=== PATIENT | female | born 1985 | race African-American/Black ===

== ENCOUNTER 2016-11-26 06:25 | Inpatient (IN) | payer OTHER ==
[2016-11-26] MEDS ORDERED: SODIUM PHOSPHATE/NA BIPHOS 133 ML ENEMA PR ONE (08:00)
[2016-11-26 08:53] LABS: BASOPHIL 0.4 % (0-2.0); EOSINOPHIL 0.9 % (0-4.5); MCH 24.9 pg (25.7-33.7); MCHC 32.4 g/dl (32.0-36.0); MEAN CELL VOLUME 76.9 fl (80-96); MEAN PLT VOLUME 9.7 fl (7.5-11.1); NEUTROPHILS 67.1 % (42.8-82.8); PLATELET COUNT 150 K/MM3 (134-434); RDW 22.5 % (11.6-15.6); WHITE BLOOD COUNT 7.4 K/mm3 (4.0-10.0)
[2016-11-26 09:03] LABS: CALCIUM 8.5 mg/dL (8.5-10.1); CREATININE 0.7 mg/dL (0.55-1.02)
[2016-11-26 09:06] LABS: URINE APPEARANCE CLEAR; URINE BILIRUBIN NEGATIVE (NEGATIVE); URINE BLOOD NEGATIVE (NEGATIVE); URINE COLOR STRAW; URINE GLUCOSE (UA) NEGATIVE (NEGATIVE); URINE KETONE NEGATIVE (NEGATIVE); URINE LEUK ESTERASE NEGATIVE (NEGATIVE); URINE NITRITE NEGATIVE (NEGATIVE); URINE PROTEIN NEGATIVE (NEGATIVE); URINE UROBILINOGEN NEGATIVE E.U./dl (0.2-1.0)
[2016-11-26 09:29] VITALS: BMI 29.7
[2016-11-26] MEDS ORDERED: DINOPROSTONE 10 MG VAGINAL SUPPOSITORY VG ONE (09:30)
[2016-11-26 09:31] LABS: INR 0.9 (0.82-1.09); PROTHROMBIN TIME (PATIENT) 9.9 SEC (9.98-11.88)
[2016-11-26 09:33] LABS: ACTIVATED PTT 30.3 SECONDS (26.9-34.4)
[2016-11-26] MEDS ORDERED: BUTORPHANOL TARTRATE 1 MG/ML VIAL IVPB ONE (09:50)
[2016-11-26] MEDS ORDERED: DEXTROSE 5%-LACTATED RINGERS 1,000 ML IV SCH (10:00)
--- NOTE | 2016-11-26 10:06 | HP ---
Past Medical History - Primary Care Physician PCP:: Melissa Gross - Admission Chief Complaint: 31 yrs , 39 weeks gestation PROM since 4.00am . no c/ o labor contractions History of Present Illness: Pt is late registrant at [address] [place] [address] . PNC in [place] prior to that. work up : A Pos, Rpr nr, Hbsag neg, Rubella pos, Quantiferon neg, GBS neg, HIV neg.GGt 96 11/15/16 pap NILM, gc/ct neg sono done 2 days ago, report not available . Marenal Plasma test for aneuploidy screen neg in [place]. 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 Weeks Gestation by Dates: 39 ...EDC by Dates: 12/04/16 ...EDC by Sono: 12/04/16 (39 weeks) Heme/Onc: No: Anemia Infectious Disease: No: HIV, STD's Psych: No: Anxiety, Bipolar, Depression Endocrine: No: Diabetes Mellitus, Hyperthyroidism, Hypothyroidism - Past Surgical History Past Surgical History: Yes: None Hx Myomectomy: No Hx Transabdominal Cerclage: No - Smoking History Smoking history: Never smoked Have you smoked in the past 12 months: No - Alcohol/Substance Use Hx Alcohol Use: No History of Substance Use: reports: None - Social History History of Recent Travel: No Home Medications - Allergies Allergies/Adverse Reactions: Allergies Allergy/AdvReac Type Severity Reaction Status Date / Time No Known Allergies Allergy Verified 11/26/16 09:06 - Home Medications Home Medications: Ambulatory Orders Vitamins (Sjr) - 1 tab PO DAILY 01/30/15 Physical Exam - Maternity Vital Signs: Vital Signs Temperature 97.6 F 11/26/16 09:00 Pulse Rate 79 11/26/16 09:00 Respiratory Rate 14 11/26/16 09:00 Blood Pressure 115/76 11/26/16 09:00 O2 Sat by Pulse Oximetry (%) Constitutional: Yes: Well Nourished, No Distress Eyes: Yes: WNL HENT: Yes: WNL Neck: Yes: WNL Cardiovascular: Yes: WNL Lungs: Clear to auscultation Breast(s): Yes: WNL - Abdominal Exam/OB Fundal Height: 38 Number of Fetuses: Single Presentation: Vertex Contractions: Yes Regularity: Irregular (8-10 min) Intensity: Unaware Monitor Mode: External Heart Rate (range): 130 Heart Rate Location: [facility] Category: I Accelerations: Uniform Decelerations: None - Vaginal Exam/OB Vaginal Bleediing: No Speculum Exam: No Dilatation (cm): 1-2 Effacement (%): 50 Amniotic Membrane Status: Ruptured Nitrazine Test: Positive Amniotic Fluid: Yes: Clear Presentation: Vertex/Position Station: -4 (-4/-3) - Physical Exam Musculoskeletal: Yes: WNL Extremities: Yes: WNL. No: Calf Tenderness Edema: No Integumentary: Yes: WNL Deep Tendon Reflex Grade: Normal +2 ...Motor Strength: WNL Psychiatric: Yes: WNL, Alert, Oriented - Labs Lab Results: CBC, BMP 11/26/16 07:50 11/26/16 07:50 Laboratory Tests 11/26/16 07:50 Blood Type A POSITIVE Antibody Screen Negative Problem List - Problems (1) 39 weeks gestation of Code(s): Z3A.39 - 39 WEEKS GESTATION OF (2) PROM (premature rupture of membranes) Code(s): O42.90 - CLEVE ROM, 7TH0 BETW RUPT & ONST LABR, UNSP WEEKS OF GEST Assessment/Plan 31 yrs , 39 weeks iup, PROM , cx not favorable. Plan cervidil induction of labor Trial vaginal delivery
--- NOTE | 2016-11-26 14:17 | PN ---
Progress Note (short form) - Note Progress Note: 1.45 pm cervidil fell off in the bathroom . ut c ar arregular fhr 125 bpm regular , cat-1 2.10 pm pelvic exam cx post/soft/loosely hanging over pp/, Vx -3 Selected Entries 11/26/16 12:00 Temperature 98.0 F Pulse Rate 80 Blood Pressure 118/61 Plan Pitocin Induction Problem List - Problems (1) 39 weeks gestation of Code(s): Z3A.39 - 39 WEEKS GESTATION OF (2) PROM (premature rupture of membranes) Code(s): O42.90 - CLEVE ROM, 7TH0 BETW RUPT & ONST LABR, UNSP WEEKS OF GEST
[2016-11-26 14:30] LABS: PLATELET ESTIMATE ADEQUATE (NORMAL)
[2016-11-26] MEDS ORDERED: OXYTOCIN 15 UNITS/ LR 250 ML 250 ML IVPB SCH (14:30)
[2016-11-26 14:31] LABS: ANISOCYTOSIS 1+
[2016-11-26] MEDS ORDERED: ELECTROLYTE-148 SOLN 1,000 ML IV SCH (17:40)
[2016-11-26] MEDS ORDERED: FENTANYL/BUPIVACAINE/NS/PF - PCEA - 50 ML DISP.SYRIN EP SCH (18:00)
--- NOTE | 2016-11-26 18:38 | PN ---
Progress Note, Labor Vaginal Exam #1 Labor Exam Date: 11/26/16 Labor Exam Time: 18:30 Heart Rate (range): 125 Dilatation: antlip Effacement (%): 100 Amniotic Membrane Status: Ruptured Presentation: Vertex/Position Station: +1 Remarks: fhr cat-1 uc 1-2 min 16.20 stadol 2 mg iv 17.35 epidural started 18.00 hr epidural completed Selected Entries 11/26/16 11/26/16 17:00 18:30 Temperature 98.2 F Pulse Rate 75 74 Blood Pressure 134/88 127/66 Vaginal Exam #2 Labor Exam Date: 11/26/16 Labor Exam Time: 19:00 Heart Rate (range): 130 Dilatation: 10 Effacement (%): 100 Amniotic Membrane Status: Ruptured Presentation: Vertex/Position Station: +2 Remarks: fhr cat-1, loss of contact UC q1-2 min pt still does not have urge tp push wait for passive descent. 19.30 hr pt encouraged to push
[2016-11-26] MEDS ORDERED: AMPICILLIN - 100 ML IVPB ONE (20:00)
--- NOTE | 2016-11-26 20:27 | PN ---
Delivery - Delivery Vaginal Delivery: No Problems, Spontaneous (after delivary of cord blood collection for stem cells CBR Kit was used, also cord (tissuse ) segment was placed in provided cup with preservating fluid .. cord blood collected for blood typing .) Type of Anesthesia: Local, Epidural Episiotomy/Laceration: Midline (epi sutured in layers with Chr catgut #2/0 under l/a. 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 late registrant from [place]. cervidil was inserted, it fell off after 4 hrs. Pitocin induction was started stadol followed by epidural labor analgesia was given . Intrapartum couse was uneventful
[2016-11-26] MEDS ORDERED: oxyCODONE HCL 5 MG TABLET PO PRN (20:34)
[2016-11-26] MEDS ORDERED: WITCH HAZEL 50% (TUCKS) 40 PAD/JAR PAD TP PRN (20:34)
[2016-11-26] MEDS ORDERED: BENZOCAINE 20% 57 GM BOTTLE TP PRN (20:34)
[2016-11-26] MEDS ORDERED: METHYLERGONOVINE MALEATE 0.2 MG/1 ML AMP IM PRN (20:34)
[2016-11-26] MEDS ORDERED: BISACODYL 10 MG SUPP.RECT RC PRN (20:34)
[2016-11-26] MEDS ORDERED: ACETAMINOPHEN 325 MG TABLET (FP) PO PRN (20:34)
[2016-11-26] MEDS ORDERED: BENZOCAINE 28 GM HEMORRHOIDAL OINTMENT TP PRN (20:34)
[2016-11-26] MEDS ORDERED: IBUPROFEN 600 MG TABLET (FP) PO PRN (20:34)
[2016-11-26] MEDS ORDERED: D5W-LR W/ 20 UNITS OXYTOCIN 1,000 ML IV SCH (20:45)
[2016-11-27] MEDS ORDERED: AMPICILLIN - 100 ML IVPB SCH (00:01)
[2016-11-27 07:30] LABS: BASOPHIL 0.3 % (0-2.0); EOSINOPHIL 0.4 % (0-4.5); MCH 25.3 pg (25.7-33.7); MCHC 33.3 g/dl (32.0-36.0); MEAN PLT VOLUME 9.6 fl (7.5-11.1); NEUTROPHILS 71.8 % (42.8-82.8); PLATELET COUNT 115 K/MM3 (134-434); RDW 22.4 % (11.6-15.6); WHITE BLOOD COUNT 9.6 K/mm3 (4.0-10.0)
--- NOTE | 2016-11-27 07:34 | PN ---
Post Progress Note - Subjective Subjective: no complains Post Day: 1 Type of Delivery: Vital Signs: Vital Signs Temperature 98.2 F 11/27/16 06:00 Pulse Rate 79 11/27/16 06:00 Respiratory Rate 20 11/27/16 06:00 Blood Pressure 97/50 11/27/16 06:00 O2 Sat by Pulse Oximetry (%) 99 11/26/16 19:30 Breast Exam: Yes: Soft. No: Engorged Uterus: Yes: Fundus Firm, Non-tender Lochia: Yes: Rubra Lochia, amount: Moderate Extremities: Yes: Calves non-tender Perineum: Yes: Episiotomy (healing ) Activity: Ambulating - Labs Labs: CBC WBC 9.6 K/mm3 (4.0-10.0) 11/27/16 06:10 RBC 3.89 M/mm3 (3.60-5.2) D 11/27/16 06:10 Hgb 9.8 GM/dL (10.7-15.3) L D 11/27/16 06:10 Hct 29.6 % (32.4-45.2) L D 11/27/16 06:10 MCV 76.0 fl (80-96) L 11/27/16 06:10 MCHC 33.3 g/dl (32.0-36.0) 11/27/16 06:10 RDW 22.4 % (11.6-15.6) H 11/27/16 06:10 Plt Count 115 K/MM3 (134-434) L D 11/27/16 06:10 MPV 9.6 fl (7.5-11.1) 11/27/16 06:10 Neutrophils % 71.8 % (42.8-82.8) 11/27/16 06:10 Lymphocytes % 21.1 % (8-40) D 11/27/16 06:10 Monocytes % 6.4 % (3.8-10.2) 11/27/16 06:10 Eosinophils % 0.4 % (0-4.5) 11/27/16 06:10 Basophils % 0.3 % (0-2.0) 11/27/16 06:10 Platelet Estimate Adequate (NORMAL) 11/26/16 07:50 Platelet Comment Few large plts 11/26/16 07:50 Anisocytosis 1+ 11/26/16 07:50 Problem List - Problems (1) 39 weeks gestation of Code(s): Z3A.39 - 39 WEEKS GESTATION OF (2) PROM (premature rupture of membranes) Code(s): O42.90 - CLEVE ROM, 7TH0 BETW RUPT & ONST LABR, UNSP WEEKS OF GEST Assessment/Plan stable. anemia plan discharge tomorrow.
[2016-11-27] MEDS: PRENATAL VITAMINS W/ FOLIC ACID TABLET (FP) PO SCH (09:05)
[2016-11-27] MEDS: FERROUS SO4 325 MG TABLET (FP) PO SCH ×2 (09:05→17:14)
[2016-11-27] MEDS ORDERED: SENNOSIDES/DOCUSATE COMBO (SENNA PLUS) TABLET (UD) PO PRN (22:00)
--- NOTE | 2016-11-28 08:10 | DS ---
Physical Exam-MACHINE FIXER Vital Signs: Vital Signs Temperature 98.0 F 11/27/16 21:00 Pulse Rate 88 11/27/16 21:00 Respiratory Rate 20 11/27/16 21:00 Blood Pressure 99/62 11/27/16 21:00 O2 Sat by Pulse Oximetry (%) 99 11/26/16 19:30 Constitutional: Yes: Well Nourished, Pallor, Other (no dizziness) Eyes: Yes: WNL HENT: Yes: WNL Neck: Yes: WNL Cardiovascular: Yes: WNL Respiratory: Yes: WNL Gastrointestinal: Yes: WNL ...Rectal Exam: Yes: WNL Renal/: Yes: WNL External Genitalia: Yes: Normal ....Post : Yes: Uterus firm, Uterus non-tender, Moderate lochia rubra ( pperineum intact, epi healing) Breast(s): Yes: WNL (BF) Musculoskeletal: Yes: WNL Extremities: Yes: WNL. No: Calf Tenderness Edema: Yes Edema: LLE: Trace, RLE: Trace Neurological: Yes: WNL ...Motor Strength: WNL Psychiatric: Yes: WNL Labs: CBC, BMP 11/27/16 06:10 11/26/16 07:50 Delivery - Delivery Vaginal Delivery: No Problems, Spontaneous (after delivary of cord blood collection for stem cells CBR Kit was used, also cord (tissuse ) segment was placed in provided cup with preservating fluid .. 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 late registrant from [place]. cervidil was inserted, it fell off after 4 hrs. Pitocin induction was started stadol followed by epidural labor analgesia was given . Intrapartum couse was uneventful pp anemia , counselled stable . Discharge today . Discharge Summary Reason For Visit: LABOR Current Active Problems 39 weeks gestation of (Acute) Anemia (Acute) Normal spontaneous vaginal delivery (Acute) PROM (premature rupture of membranes) (Acute) Condition: Stable - Instructions Diet, Activity, Other Instructions: Post Instructions DIET: Continue good diet high in protein, calcium, and iron rich foods. Drink at least eight (8) glasses of water daily in addition to other fluids. Ct Regular diet MEDICATIONS: Continue vitamins and iron as previously directed. Motrin and Tylenol may be taken for minor discomfort. ACTIVITY: Mild to moderate exercise may be started in two (2) weeks. Take frequent rest periods. Resume normal activity after six (6) week check up. WOUND CARE OF OPERATIVE SITE: Continue use of perineal bottle until vaginal discharge stops. Keep area clean. Shower daily. Keep abdominal wound dry. Report any drainage or redness to physician. Tub baths, tampons and douches are not permitted for [address] Breast feeding & or Bottle feeding BREAST CARE: (For those that are not breast feeding): If engorgement occurs: Wear tight fitting bra. Take Tylenol or Motrin for pain. Apply cold packs (ice in bags to each breast ) FAMILY PLANNING: There are many control alternatives to pursue and they should be discussed at your first office visit. You may resume sexual activity after your six (6) week check up. (Remember, breast feeding is not a contraceptive) NEXT PHYSICIAN APPOINTMENT: Be certain to call for a six (6) week appointment, unless otherwise directed. Call Clinic or got to Emergency Dept if you have any of the following: Heavy vaginal bleeding Painful urination Leg pain Unusual odor noted to vaginal bleeding High fever Red streaking noted on breast Referrals: Melissa Gross MD [Staff Physician] - Disposition: HOME - Home Medications Comprehensive Discharge Medication List: Ambulatory Orders Vitamins (Sjr) - 1 tab PO DAILY 01/30/15 Acetaminophen [Tylenol .Regular Strength -] 650 mg PO Q3H PRN #0 tablet Benzocaine [Americaine 20% [place] -] 1 spray TP PRN PRN #0 bottle 11/27/16 Ferrous Sulfate [Feosol] 325 mg PO BIDWM #60 tab 11/27/16 Ibuprofen [Motrin -] 200 mg PO Q4H PRN #0 tablet 11/27/16 Vitamins (Sjr) - 1 tab PO DAILY tablet 11/27/16 Witch Radha 50% (Tucks) [Tucks Pads -] 1 pad TP PRN PRN #0 pad 11/27/16
[2016-11-28 09:04] VITALS: BP 134/74; PULSE 78; TEMP 97.8
[2016-11-28] MEDS: FERROUS SO4 325 MG TABLET (FP) PO SCH (09:18)
[2016-11-28] MEDS: PRENATAL VITAMINS W/ FOLIC ACID TABLET (FP) PO SCH (09:18)
== END 2016-11-28 11:20 | disposition home or self-care (01) | DRG 560 ==
LOC: JLDR 06:25 → J3W 22:08
PROVIDERS: ADMIT Obstetrics & Gynecology; ATTEND Obstetrics & Gynecology
PROC: 0W8NXZZ Division of Female Perineum, External Approach (ICD-10-PCS; principal; 2016-11-26)
PROC: 10E0XZZ Delivery of Products of Conception, External Approach (ICD-10-PCS; 2016-11-26)
PROC: 3E0P7GC Introduction of Other Therapeutic Substance into Female Reproductive, Via Natural or Artificial Opening (ICD-10-PCS; 2016-11-26)
DX: O42.92 Full-term premature rupture of membranes, unspecified as to length of time between rupture and onset of labor (principal); O90.81 Anemia of the puerperium; D64.9 Anemia, unspecified; Z3A.39 39 weeks gestation of pregnancy; Z37.0 Single live birth
CPT/HCPCS: 36415; 59409; 80048; 81003; 85025; 85610; 85730; 86593; 86850; 86900; 86901